=== PATIENT | male | born 1990 | race Caucasian/White ===

== ENCOUNTER 2018-10-17 00:25 | Emergency (ER) | payer BC ==
[2018-10-17 06:11] LABS: ANION GAP 13 mmol/L (5-15); BLOOD UREA NITROGEN 12 mg/dL (7-18); CALCIUM 9.1 MG/DL (8.5-10.1); CARBON DIOXIDE 23 MMOL/L (21-32); CHLORIDE 106 MMOL/L (98-107); CREATININE 1.1 MG/DL (0.55-1.30); POTASSIUM 3.8 MMOL/L (3.5-5.1); SODIUM 142 MMOL/L (136-145)
[2018-10-17 06:15] LABS: HEMATOCRIT 48.1 % (42.0-52.0); HEMOGLOBIN 17.1 G/DL (14.2-18.0); MEAN CORPUSCULAR VOLUME 87 FL (80-99); RED BLOOD COUNT 5.54 M/UL (4.70-6.10); WHITE BLOOD COUNT 10.2 K/UL (4.8-10.8)
[2018-10-17 06:16] LABS: BASOPHILS % (AUTO) 0.9 % (0.0-2.0); EOSINOPHILS % (AUTO) 2.5 % (0.0-3.0); LYMPHOCYTES % (AUTO) 32.8 % (20.0-45.0); MONOCYTES % (AUTO) 6.1 % (1.0-10.0); NEUTROPHILS % (AUTO) 57.6 % (45.0-75.0); PLATELET COUNT 252 K/UL (150-450); RED CELL DISTRIBUTION WIDTH 11.1 % (11.6-14.8)
[2018-10-17 06:17] LABS: APPEARANCE,URINE CLEAR; COLOR,URINE PALE YELLOW
[2018-10-17 06:18] LABS: BILIRUBIN, URINE NEGATIVE (NEGATIVE); GLUCOSE, URINE (UA) NEGATIVE (NEGATIVE); KETONES,URINE 1+ (NEGATIVE); LEUKOCYTE ESTERASE ,URINE NEGATIVE (NEGATIVE); NITRITE,URINE NEGATIVE (NEGATIVE); PROTEIN,URINE NEGATIVE (NEGATIVE); UROBILINOGEN,URINE NORMAL MG/DL (0.0-1.0)
--- NOTE | 2018-10-17 06:24 | Emergency Room Report ---
History of Present Illness General Source: Patient Present Illness HPI This is a 27-year-old male visiting from [place]. He presents with chief complaint of suicidal thoughts. Brought in by police with EMS for psychiatric evaluation. 911 was called because patient has suicidal thoughts. According to police, he had an argument with his girlfriend and then stated that he wanted to hang himself. He actually had a belt on the ceiling. Per police, on arrival he was staring at the belt. There were able to lay down. Patient on arrival to ER denies suicidal thoughts or homicidal thought. Because of this police did not put him on a 5150 hold. He denies any other complaint. He said his depressed and did have suicidal thoughts but no particular plan right now. Alcohol tonight but no drug use. Patient History Past Medical History: none, see triage record, old chart reviewed Past Surgical History: none Family History: none Social History: ETOH Immunizations: other Reviewed Nursing Documentation: PMH: Agreed; PSxH: Agreed Review of Systems ENT: Denies: sore throat Cardiovascular: Denies: chest pain, palpitations Gastrointestinal/Abdominal: Denies: nausea, vomiting, diarrhea Musculoskeletal: Denies: back problems Skin: Denies: rash Neurological: Denies: CANO, seizures All Other Systems: negative except mentioned in HPI Physical Exam vitals unremarkable Sp02 EP Interpretation: reviewed, normal General Appearance: alert/responsive, no apparent distress, non-toxic Head: normocephalic, atraumatic Eyes: PERRL, EOMI ENT: oropharynx normal Neck: supple/symm/no masses Respiratory: effort normal, no rhonchi, no wheezing Cardiovascular: no murmur, gallop, rub Gastrointestinal: non-tender, no mass, non-distended, no rebound/guarding, normal bowel sounds Musculoskeletal: gait & station normal Neurologic: oriented x3, sensory intact, motor strength/tone normal Skin: no rash, normal palpation Medical Decision Making Diagnostic Impression: Primary Impression: Suicidal ideations Additional Impression: Alcohol intoxication Qualified Codes: F10.920 - Alcohol use, unspecified with intoxication, uncomplicated ER Course Patient presents with suicidal thoughts and intent. Because he had a concrete plan of pain himself with a belt. He went as far as putting as securing it to the ceiling. Because of this, in my medical opinion he need psychiatric evaluation. I place him on a 5150 hold. He is medically clear for psychiatric evaluation. Lab Results Impression labs unremarkable Status: improved Disposition: XFER TO PSYCH HOSP/UNIT Condition: Stable Referrals: NOT CHOSEN IPA/,REFERRING (PCP) Mahin Valente MD Oct 17, 2018 06:24
[2018-10-17 07:15] VITALS: BP 136/86
--- NOTE | 2018-10-17 07:15 | NUR ---
ED Nurse Note: received pt from [facility]. pt sitting on the bed with girlfriend. pt appears to be calm and cooperative. AAO x4. respirations even and non-labored noted. denies SI/HI at this time. denies hearing any voices and seeing anything things. skin warm to touch. no open wound noted. RN made verbal contract that pt will be in safe. pt refused to undress. RN encourage pt to puts hospital gown. breakfast tray provide. will wait for the transportation.
--- NOTE | 2018-10-17 07:20 | NUR ---
ED Nurse Note: sitter and girlfriend at the bed side.
--- NOTE | 2018-10-17 07:30 | NUR ---
ED Nurse Note: Refer to paper charting.
[2018-10-17 10:03] VITALS: BP 138/94
--- NOTE | 2018-10-17 10:05 | NUR ---
ED Nurse Note: pt will be transfer by [facility] unit 6[address].
== END 2018-10-17 10:09 ==
LOC: EMR 00:25
DX: R45.851 Suicidal ideations (principal); F10.129 Alcohol abuse with intoxication, unspecified
CPT/HCPCS: 36415; 80048; 80307; 81003; 85025; 99285; G0480; 80329